=== PATIENT | female | born 1985 | race African-American/Black ===

== ENCOUNTER 2017-10-13 11:14 | Emergency (ER) | payer OTHER ==
[2017-10-13 11:44] VITALS: BP 142/79; PULSE 91; TEMP 98; BMI 41.8
--- NOTE | 2017-10-13 12:19 | PDOC ---
History of Present Illness - General Chief Complaint: Asthma Stated Complaint: ASTHMA Time Seen by Provider: 10/13/17 12:18 - History of Present Illness Initial Comments: 32 year old female with PMH of asthma presenting with shortness of breath, cough, and chills over the past two days that has gradually worsened. States she had a sick co-worker two days prior who was coughing with rhinorrhea, shortly after, she began to experience the same symptoms with a yellow tinged productive cough. She didn't have a prescription for her inhaler and tried to call her PCP but the clinic wanted to arrange an appointment prior to prescription. She set up an appointment for a few weeks from now but had a very labored breathing episode at work today so her boss called 911 to have her brought to the ED. She received Decadron and duoneb x 2 in EMS with good relief of the majority of her symptoms. Denies nausea, vomiting, measured fevers, diarrhea, urinary symptoms, visual symptoms, or other issues. 10/13/17 12:29 Past History - Past Medical History Allergies/Adverse Reactions: Allergies Allergy/AdvReac Type Severity Reaction Status Date / Time No Known Allergies Allergy Verified 10/13/17 11:36 Home Medications: Ambulatory Orders Albuterol Sulfate Inhaler - [Ventolin HFA Inhaler -] 1 - 2 inh PO Q4H #1 inhaler 10/13/17 Benzonatate [Tessalon Pearls -] 100 mg PO TID #21 capsule 10/13/17 - Suicide/Smoking/Psychosocial Hx Smoking History: Current some day smoker Number of Cigarettes Smoked Daily: 2 Information on smoking cessation initiated: Yes Hx Alcohol Use: No Drug/Substance Use Hx: No Review of Systems - Review of Systems Constitutional: Yes: Chills. No: Diaphoresis, Fever HEENTM: No: Blurred Vision, Recent change in vision Respiratory: Yes: Cough, Shortness of Breath, SOB with Exertion, Wheezing Cardiac (ROS): Yes: Chest Tightness. No: Chest Pain, Irregular Heart Rate, Lightheadedness ABD/GI: No: Constipated, Diarrhea : No: Burning, Dysuria, Discharge Musculoskeletal: Yes: Other (ankle issues chronically). No: Back Pain Integumentary: No: Bruising, Erythema, Lesions Neurological: No: Numbness, Paresthesia, Tremors Psychiatric: No: Anxiety, Depression Hematologic/Lymphatic: No: Anemia, Blood Clots, Easy Bleeding *Physical Exam - Vital Signs Last Vital Signs Temp Pulse Resp BP Pulse Ox 98 F 91 H 20 142/79 98 10/13/17 11:20 10/13/17 11:20 10/13/17 11:20 10/13/17 11:20 10/13/17 11:20 - Physical Exam General Appearance: Yes: Nourished, Appropriately Dressed. No: Apparent Distress HEENT: positive: EOMI, [place], Normal ENT Inspection, Normal Voice Neck: positive: Trachea midline, Normal Thyroid, Supple. negative: Tender, Rigid Respiratory/Chest: positive: Decreased Breath Sounds, Wheezing. negative: Chest Tender, Lungs Clear (moving airly reasonably well but does sound constricted with upper airway wheezing), Normal Breath Sounds, Respiratory Distress, Accessory Muscle Use, Crackles, Rales Cardiovascular: positive: Regular Rhythm, Regular Rate Gastrointestinal/Abdominal: positive: Normal Bowel Sounds, Flat, Soft. negative : Tender Medical Decision Making - Medical Decision Making 32 year old female with history of asthma currently with mild exacerbation that improved after duoneb x3 and decadron. CXR clear. Will DC with Tessalon perls, inhaler script, and follow up with PCP. 10/13/17 14:06 *DC/Admit/Observation/Transfer Diagnosis at time of Disposition: Asthma exacerbation Qualifiers: Asthma severity: mild Asthma persistence: intermittent Qualified Code(s): J45.21 - Mild intermittent asthma with (acute) exacerbation - Discharge Dispostion Disposition: HOME Condition at time of disposition: Improved Decision to Admit order: Yes - Prescriptions Prescriptions: Albuterol Sulfate Inhaler - [Ventolin HFA Inhaler -] 1 - 2 inh PO Q4H #1 inhaler Benzonatate [Tessalon Pearls -] 100 mg PO TID #21 capsule - Referrals Referrals: [facility] [Provider Group] - Patient Instructions Printed Discharge Instructions: Asthma -- Adult Additional Instructions: Please use your inhaler as needed and use the Tessalon Perls for your cough as prescribed. Please follow up with your PCP or you can use our clinic included n these instructions, Please return to the ED if you have new or worsening symptoms. - Post Discharge Activity Forms/Work/School Notes: Back to Work
[2017-10-13] MEDS ORDERED: ALBUTEROL SO4 2.5/IPRATROPIUM 0.5 INH SOL 3 ML VIAL.NEB. NEB ONE ×3 (12:26→13:50)
[2017-10-13] MEDS ORDERED: MAG HYDROX/ALH/SMC/DPHA/LIDO 240 ML MOUTHWASH MM ONE (12:39)
--- NOTE | 2017-10-13 12:56 | PDOC ---
Attending Attestation - HPI HPI: 10/13/17 13:14 The patient is a 32 year old female with a significant past medical history of asthma who presents to the emergency department for evaluation of asthma exacerbation. The patient reports associated symptoms of dyspnea, chills, chest tightness, and a yellow tinged productive cough which has worsened over 2 days. She reports being in contact with a sick-coworker. The patient reports an episode of labored breathing at work which prompted her visit to the emergency room. Of note, the patient did not have a prescription for her inhaler, and has planned to follow up with her PCP for a prescription renewal. Upon arrival, EMS administered Decadron (10mg) and duoneb(2x) which significantly improved her symptoms. The patient denies headache, dizziness, fever, chills, nausea, vomiting, and any urinary/bowel issues. Allergies: NKDA Social History: Current someday smoker. No reported alcohol or drug use. - Physicial Exam PE: Vitals: Triage Vital signs reviewed General Appearance: no acute distress, well nourished well developed, Head: Atraumatic, normocephalic Eyes: Pupils equal reactive round, extraocular movement intact Neck: Supple Chest Wall: Nontender Cardiac: Regular rate and rhythm, no murmurs, no rubs, no gallops, Lungs: (+)Very mild expiratory wheeze. Abdomen: Soft, nondistended, nontender to palpation Extremities: Full range of motion to all extremities, no cyanosis, clubbing, or edema Skin: Warm and dry, no rashes or lesions, no petechiae Psych: normal mood, normal affect <Enrique Breaux - Last Filed: 10/13/17 13:14> - Resident Resident Name: Alejandro Boles - ED Attending Attestation I have performed the following: I have examined & evaluated the patient, The case was reviewed & discussed with the resident, I agree w/resident's findings & plan, Exceptions are as noted - Medical Decision Making 10/13/17 16:55 The patient is a 32 year old female with a significant past medical history of asthma who presents to the emergency department for evaluation of asthma exacerbation. The patient reports associated symptoms of dyspnea, chills, chest tightness, and a yellow tinged productive cough which has worsened over 2 days. She reports being in contact with a sick-coworker. The patient reports an episode of labored breathing at work which prompted her visit to the emergency room. Of note, the patient did not have a prescription for her inhaler, and has planned to follow up with her PCP for a prescription renewal. Upon arrival, EMS administered Decadron (10mg) and duoneb(2x) which significantly improved her symptoms. 32 years old with mild asthma exacerbation. Patient presented via EMS received Decadron and DuoNeb's in the field Upon my examination patient along her wheezing states she feels much better Patient observed in the emergency department for several hours no recurrence of wheezing we'll discharge Ventolin pump she will follow up with her PCP Findings, the need for follow-up and strict return instructions discussed with patient. <Angel Doherty - Last Filed: 10/13/17 16:57> Attestations - Attestations Documentation prepared by Enrique Breaux, acting as neuropsychology medical consultant for Angel Doherty MD. <Enrique Breaux - Last Filed: 10/13/17 13:14>
[2017-10-13] MEDS ORDERED: MAG HYDROX/ALH/SMC/DPHA/LIDO 240 ML MOUTHWASH MM SCH (18:00)
== END 2017-10-13 15:32 | disposition home or self-care (01) ==
LOC: JER 11:14
PROC: 3E0F7GC Introduction of Other Therapeutic Substance into Respiratory Tract, Via Natural or Artificial Opening (ICD-10-PCS; principal; 2017-10-13)
DX: J45.21 Mild intermittent asthma with (acute) exacerbation (principal)
CPT/HCPCS: 71046-TC-FY; 84703; 99282-25; J7620